=== PATIENT | male | born 1965 | race Caucasian/White ===

== ENCOUNTER 2022-03-01 05:10 | Emergency (ER) | payer SELFPAY ==
[~2022-03-01] VITALS: Ht 175.3 cm; Wt 108.9 kg
[2022-03-01 05:18] VITALS: BP_SYST 151
--- NOTE | 2022-03-01 05:23 | NUR ---
PT HERE C/O RT SCOTAL AND RT GROIN PAIN X6 DAYS. PT DENIES TRAUMA. PER PT IT STARTED HAVING PAIN 6 DAYS AGO AND SWELLING STARTED.DENIES FEVER, DENIES PENILE DISCHARGES PMH:DENIES PT AAOX4, NO SOB NOTED AND NAD. PT ASSISTED TO BED 7, REPORT GIVEN TO MAR KUMAR.
--- NOTE | 2022-03-01 05:25 | NUR ---
Received report from STACY Brar; assuming care of patient at this time.
--- NOTE | 2022-03-01 05:32 | NUR ---
Clemencia Travis/Ox4, VSS, ambulatory, resp even and unlabored. Patient states "Last Friday I noticed that I had swelling on my right groin area. I could use the bathroon fine, but when I touched my penis I felt discomfort in my groin area. The swelling went down 2 days later, but I wanted to get seen today because I feel like its still swollen. I just want to make sure everything is okay." Patient lying in bed with side rails raised and connected to monitor. Nad noted at this time.
--- NOTE | 2022-03-01 06:12 | NUR ---
VICENTE Hays at bedside.
[2022-03-01] MEDS ORDERED: KETOROLAC TROMETHAMINE 15 MG VIAL IVP ONE (06:30)
--- NOTE | 2022-03-01 06:39 | NUR ---
Patient filled out IV contrast consent form
--- NOTE | 2022-03-01 06:40 | NUR ---
Lab at bedside.
--- NOTE | 2022-03-01 06:50 | NUR ---
# 20 gauge angiocath placed to left AC. Use of asceptic technique. Opsite placed over site. Blood return noted. Flushed with 10 cc of normal saline. No evidence of infiltration noted. Patient tolerated well.
[2022-03-01 06:55] LABS: BASOPHILS # (AUTO) 0.2 K/uL (0.0-0.2); BASOPHILS % (AUTO) 1.3 % (0.0-2.0); EOSINOPHILS # (AUTO) 0.2 K/uL (0.0-0.4); EOSINOPHILS % (AUTO) 1.9 % (0.0-4.0); HEMATOCRIT 36.2 % (36-54); LYMPHOCYTES # (AUTO) 2.4 K/uL (1.0-5.5); LYMPHOCYTES % (AUTO) 20.6 % (20.5-51.5); MEAN CORPUSCULAR HEMOGLOBIN 28 pg (27-31); MEAN CORPUSCULAR HGB CONC 33 % (32-36); MEAN CORPUSCULAR VOLUME 84 fL (79.0-98.0); MONOCYTES # (AUTO) 0.8 K/uL (0.0-1.0); MONOCYTES % (AUTO) 6.7 % (1.7-9.3); NEUTROPHILS # (AUTO) 8.2 K/uL (1.8-7.7); NEUTROPHILS % (AUTO) 69.5 % (40.0-70.0); PLATELET COUNT (AUTO) 435 K/uL (130-430); RED BLOOD CELL COUNT(AUTO) 4.33 MIL/uL (4.2-6.2); RED CELL DISTRIBUTION WIDTH 14.5 % (9.0-15.0); WHITE BLOOD COUNT (AUTO) 11.8 K/uL (4.8-10.8)
--- NOTE | 2022-03-01 07:00 | NUR ---
Patient taken to ultrasound accompanied by radiology.
--- NOTE | 2022-03-01 07:18 | NUR ---
Report given to STACY Shirley who will assume care of patient at this time.
[2022-03-01 07:44] LABS: POTASSIUM 3.8 mmol/L (3.5-5.1)
[2022-03-01 07:45] LABS: CREATININE 0.69 mg/dL (0.55-1.30)
--- NOTE | 2022-03-01 07:50 | NUR ---
RECEIVED PT FROM STACY LYN. ASSUMED CARE. PT BIBS WITH C/O RT SCOTAL AND RT GROIN PAIN X6 DAYS. PT DENIES TRAUMA. PER PT IT STARTED HAVING PAIN, SWELLING 6 DAYS AGO. DENIES PENILE DISCHARGE. PT IS AAOX4. ON R/A. DENIES N/V/D/C. SKIN INTACT, PERIPHERAL PULSES NORMAL. IV CATH TO LAC 20, FLUSHED, INTACT, SITE WNL.
[2022-03-01 07:58] LABS: TOTAL BILIRUBIN 0.2 mg/dL (0.0-1.0)
[2022-03-01 07:59] LABS: ALBUMIN 3.4 g/dL (3.4-4.8)
--- NOTE | 2022-03-01 08:08 | NUR ---
PT BACK FROM C/T SCAN, PLACED ON MONITOR. DENIES PAIN.
--- NOTE | 2022-03-01 08:22 | NUR ---
URINE OBTAINED AND TAKEN TO LAB.
[2022-03-01 09:00] LABS: BILIRUBIN,URINE NEGATIVE (NEGATIVE); BLOOD, URINE NEGATIVE (NEGATIVE); CLARITY/URINE CLEAR (CLEAR); COLOR,URINE YELLOW (YELLOW); GLUCOSE,URINE NEGATIVE (NEGATIVE); KETONES,URINE NEGATIVE (NEGATIVE); LEUKOCYTE ESTERASE ,URINE NEGATIVE (NEGATIVE); NITRITE, URINE NEGATIVE (NEGATIVE); PROTEIN URINE NEGATIVE (NEGATIVE); UROBILINOGEN,URINE 0.2 (0.2-1.0)
--- NOTE | 2022-03-01 09:35 | NUR ---
DR. PLASCENCIA AT BEDSIDE TO DISCUSS POC.
[2022-03-01 09:41] VITALS: BP_SYST 145
== END 2022-03-01 09:44 | disposition home or self-care (01) ==
LOC: SED 05:10
DX: N50.811 Right testicular pain (principal); N43.3 Hydrocele, unspecified; Z79.899 Other long term (current) drug therapy
CPT/HCPCS: 99285; 74177; 96374; 80053; 85025; 36415; 76376; 76870; 83605; 81003; J1885; Q9967